=== PATIENT | male | born 2000 | race Caucasian/White ===

== ENCOUNTER 2020-09-06 14:21 | Emergency (ER) | payer OTHER, SELFPAY | END 2020-09-06 15:15 | disposition home or self-care (01) | LOC: BURERS 14:21 | DX: H66.91 Otitis media, unspecified, right ear (principal); H60.91 Unspecified otitis externa, right ear; F17.210 Nicotine dependence, cigarettes, uncomplicated; F17.220 Nicotine dependence, chewing tobacco, uncomplicated | CPT/HCPCS: 99282 ==